=== PATIENT | female | born 2000 | race American Indian/Alaskan Native ===

== ENCOUNTER 2024-10-09 16:56 | Emergency (ER) | payer OTHER ==
[~2024-10-09] VITALS: Ht 167.6 cm; Wt 97.2 kg
[2024-10-09] MEDS ORDERED: ADULT LOW DOSE81 MG PO (17:40)
[2024-10-09] MEDS ORDERED: PRENATAL + DHA1 EAC1 PO (17:40)
[2024-10-09 18:36] LABS: INFLUENZA B NAA NEGATIVE (NEGATIVE); RESPIRATORY SYNCYTIAL VIR NAA NEGATIVE (NEGATIVE)
[2024-10-09] MEDS ORDERED: AMOX TR-K CLV1 EAC1 PO (19:54)
[2024-10-09] MEDS ORDERED: TRAMADOL HCL50 MG PO (19:54)
[2024-10-09 20:00] VITALS: BP 108/65
[2024-10-09] MEDS ORDERED: AMOXICILLIN/CLAVULANATE K 875 MG HOME.PACK PO ONE (20:00)
[2024-10-09] MEDS ORDERED: TRAMADOL HCL 50 MG HOME.PACK PO ONE (20:00)
== END 2024-10-09 20:03 | disposition home or self-care (01) ==
LOC: ED 16:56
PROVIDERS: Emergency Medicine
DX: J32.9 Chronic sinusitis, unspecified (principal); S29.011A Strain of muscle and tendon of front wall of thorax, initial encounter; X58.XXXA Exposure to other specified factors, initial encounter; Z79.899 Other long term (current) drug therapy; Z79.82 Long term (current) use of aspirin
CPT/HCPCS: 87502; 87651; 99284; A9270; U0002

== ENCOUNTER 2025-01-22 16:51 | Inpatient (IN) | payer OTHER ==
[~2025-01-22] VITALS: Ht 165.1 cm; Wt 104.3 kg
[~2025-01-22 16:51] MED LIST: ADULT LOW DOSE81 MG PO; AMOX TR-K CLV1 EAC1 PO; PRENATAL + DHA1 EAC1 PO; TRAMADOL HCL50 MG PO
[2025-01-23] MEDS ORDERED: miSOPROStoL 25 MCG TAB PV SCH (00:30)
[2025-01-23] MEDS ORDERED: CALCIUM CARBONATE 500 MG CHEW PO PRN (00:30)
[2025-01-23] MEDS ORDERED: MAGNESIUM HYDROXIDE/AL HYDROX 30 ML CUP PO PRN (00:30)
[2025-01-23 00:38] LABS: HEMATOCRIT 38.2 % (35.0-50.0); HEMOGLOBIN 13.2 g/dL (12.0-18.0); MCH 30.2 (27-36); MCHC 34.6 g/dl (30-36); MCV 87.5 fl (81-99); RBC 4.36 M/ul (4.3-5.7); RDW 15.1 (10.5-15.0)
[2025-01-23 01:25] LABS: ABO B; ANTIBODY SCREEN NEGATIVE; RH POSITIVE
[2025-01-23 01:48] VITALS: BP 112/75
[2025-01-23 01:50] LABS: AMPHETAMINES, URINE NEGATIVE (NEGATIVE); BARBITURATES, URINE NEGATIVE (NEGATIVE); BENZODIAZEPINE, URINE NEGATIVE (NEGATIVE); BUPRENORPHINE, URINE NEGATIVE (NEGATIVE); CANNABINOID, URINE POSITIVE (NEGATIVE); COCAINE, URINE NEGATIVE (NEGATIVE); ECSTASY, URINE NEGATIVE (NEGATIVE); FENTANYL, URINE NEGATIVE (NEGATIVE); METHADONE, URINE NEGATIVE (NEGATIVE); OPIATES, URINE NEGATIVE (NEGATIVE); OXYCODONE, URINE NEGATIVE (NEGATIVE); PHENCYCLIDINE, URINE NEGATIVE (NEGATIVE)
[2025-01-23] MEDS ORDERED: LACTATED RINGER'S 1,000 ML IV PRN ×2 (05:45→06:15)
[2025-01-23] MEDS ORDERED: ondansetron HCL 4 MG/2 ML VIAL IV SCH (09:30)
[2025-01-23] MEDS ORDERED: OXYTOCIN/0.9 % SODIUM CHLORIDE 30 UNITS/500 ML BAG IV SCH (09:45)
[2025-01-23] MEDS ORDERED: ROPIVACAINE 0.2% 200 ML BAG ONE (09:53)
[2025-01-23] MEDS ORDERED: ROPIVACAINE 0.2% 200 ML BAG EPIDURAL SCH (10:45)
[2025-01-23] MEDS ORDERED: ePHEDrine sulfate 5 MG/ML SYRINGE IV PRN (10:45)
[2025-01-23] MEDS ORDERED: LACTATED RINGER'S 2,000 ML IV ONE (10:45)
[2025-01-23] MEDS ORDERED: LACTATED RINGER'S 500 ML IV PRN (10:45)
[2025-01-23] MEDS ORDERED: OXYTOCIN/0.9 % SODIUM CHLORIDE 500 ML IV SCH (15:00)
[2025-01-24] MEDS ORDERED: WITCH HAZEL/GLYCERIN 1 EA PAD TOP PRN (04:45)
[2025-01-24] MEDS ORDERED: HYDROCODONE/ACETA 5/325 TAB PO PRN (04:45)
[2025-01-24] MEDS ORDERED: BENZOCAINE 60 ML AEROSOL TOP PRN (04:45)
[2025-01-24] MEDS ORDERED: OXYTOCIN/0.9 % SODIUM CHLORIDE 500 ML IV SCH (04:45)
[2025-01-24] MEDS ORDERED: HYDROCORTISONE ACETATE 25 MG SUPP PR PRN (04:45)
[2025-01-24] MEDS ORDERED: CALCIUM CARBONATE 500 MG CHEW PO PRN (04:45)
[2025-01-24] MEDS ORDERED: MAGNESIUM HYDROXIDE/AL HYDROX 30 ML CUP PO PRN (04:45)
[2025-01-24] MEDS ORDERED: MAGNESIUM HYDROXIDE 30 ML UDC PO PRN (04:45)
[2025-01-24] MEDS ORDERED: ACETAMINOPHEN 325 MG TAB PO SCH (08:00)
[2025-01-24] MEDS ORDERED: SENNOSIDES/DOCUSATE 1 EA TAB PO SCH (09:00)
[2025-01-24] MEDS ORDERED: IBUPROFEN 600 MG TAB PO SCH (11:00)
--- NOTE | 2025-01-25 09:31 | PR ---
[facility] [address] [facility] [place], [place] [address] Signed PP Progress Notes Datetime Report Generated by CPN: 01/25/2025 09:31 SUBJECTIVE: [id number] Pain: Within Normal Limits Nausea/Vomiting: Denies Flatus: Yes Bowel Movement: No Vital Signs: [id number] Vital Signs: Reviewed; Within Normal Limits EXAM: Ongoing Cardiovascular: Normal Respiratory: Normal Abdomen/Uterus: Normal Lochia: Normal Vulva/Perineum: Not Done Breasts: Not Done CVA Tenderness: Normal Extremities: Normal Incision: Not Applicable Progress: Normal Exam Comments: Fundus firm U-2 nontender IMPRESSION/PLAN/PROCEDURES: [id number] Impression: Normal Progression Plan: Discharge Progress Notes: Pt seen and examined. Doing well. Ambulating, voiding, and tolerating full diet. Pain and lochia minimal. Breastefeding well. No fevers/chills. Denies depression and is not interested in restarting antidepressant. Reviewed d/c instructions and medications. Undecided on pp contraception. No other questions or concerns. Strongly desires d/c home Signing Physician: Yamileth oMrris DO Copies: ~ *Electronically Signed* 01/25/25930 YAMILETH MORRIS (MARIBEL) DO PATIENT NAME: MICHELE ARRIAGA PROGRESS NOTE DATE OF : 02 PHYSICIAN: YAMILETH MORRIS) DO RPT #: [id number] REPORT IS CONFIDENTIAL AND NOT TO BE RELEASED WITHOUT AUTHORIZATION
== END 2025-01-25 12:00 | disposition home or self-care (01) | DRG 807 ==
LOC: FBC 16:51
PROVIDERS: ADMIT Obstetrics & Gynecology; ATTEND Obstetrics & Gynecology
PROC: 3E0DXGC Introduction of Other Therapeutic Substance into Mouth and Pharynx, External Approach (ICD-10-PCS; 2025-01-23)
PROC: 4A1HXCZ Monitoring of Products of Conception, Cardiac Rate, External Approach (ICD-10-PCS; 2025-01-23)
PROC: 10E0XZZ Delivery of Products of Conception, External Approach (ICD-10-PCS; principal; 2025-01-24)
PROC: 0KQM0ZZ Repair Perineum Muscle, Open Approach (ICD-10-PCS; 2025-01-24)
DX: O99.344 Other mental disorders complicating childbirth (principal); Z37.0 Single live birth; F41.9 Anxiety disorder, unspecified; Z3A.39 39 weeks gestation of pregnancy; O70.1 Second degree perineal laceration during delivery; O69.81X0 Labor and delivery complicated by cord around neck, without compression, not applicable or unspecified; O99.334 Smoking (tobacco) complicating childbirth; F17.200 Nicotine dependence, unspecified, uncomplicated; F31.9 Bipolar disorder, unspecified; O99.284 Endocrine, nutritional and metabolic diseases complicating childbirth; E55.9 Vitamin D deficiency, unspecified
CPT/HCPCS: 36415; 80307; 85027; 86850; 86900; 86901; A9270; J2405; J2795; J7121